=== PATIENT | male | born 1955 | race Caucasian/White ===

== ENCOUNTER 2022-04-03 08:15 | Outpatient (CLI) | payer BC, SELFPAY ==
--- NOTE | 2022-04-03 08:15 | CRLHL7_ITS ---
For Patients: As a result of the Century Cures Act, medical imaging exams and procedure reports are released immediately into your electronic medical record. You may view this report before your referring provider. If you have questions, please contact your health care provider. Technique: Double-contrast esophagram performed after the uneventful administration of effervescent crystals and thick barium followed by thin barium. Fluoroscopy time 1 minutes 30 seconds. Indication: Dysphagia Comparison: 07/11/2021 Findings: Postoperative changes of hernia repair noted at the GE junction. The mid esophageal mucosa appears normal without evidence of [place]`s esophagus. Tertiary contractions throughout the distal esophagus are more prominent compared to the prior study. There is slight narrowing at the GE junction with inability to clear 13 millimeter barium tablet despite changes in position and multiple swallows with water and thin barium. The swallowing mechanism is normal. Esophageal motility appears normal. There is no significant reflux. Impression: Postop changes of hernia repair. Mild narrowing of the GE junction with inability to clear 13 millimeter tablet. Increased tertiary contractions of the distal esophagus compared to the prior study. Dictated by Abdias Torres MD @ 04/03/2022 9:56:40 AM (Electronically Signed)
== END 2022-04-03 08:16 | disposition home or self-care (01) ==
PROVIDERS: PCP Surgery; Visit Provider Surgery
DX: R13.10 Dysphagia, unspecified (principal)
CPT/HCPCS: 74221

== ENCOUNTER 2022-06-04 09:44 | Outpatient (CLI) | payer BC, SELFPAY ==
--- NOTE | 2022-06-04 12:00 | CRLHL7_ITS ---
For Patients: As a result of the Century Cures Act, medical imaging exams and procedure reports are released immediately into your electronic medical record. You may view this report before your referring provider. If you have questions, please contact your health care provider. INDICATION: 66 year-old male. Nausea and vomiting. Hiatal hernia. Surgical repair September 2021. Chronic gastroesophageal reflux disease. TECHNIQUE: 1.1 mCi Tc-99m labeled Sulfur Colloid mixed in with a predetermined solid meal (oatmeal), and 4 ounces of water was ingested as well. Imaging performed up to 85 minutes. FINDINGS: Positive gastric emptying study. Specifically there is only 19% emptying at 85 minutes. (Less than 50% is considered abnormal). IMPRESSION: Scintigraphic evidence for delayed gastric emptying. Dictated by Rey Santacruz MD @ 06/04/2022 12:15:58 PM (Electronically Signed)
== END 2022-06-04 09:45 | disposition home or self-care (01) ==
PROVIDERS: PCP Surgery; Visit Provider Student in an Organized Health Care Education/Training Program
DX: R11.2 Nausea with vomiting, unspecified (principal)
CPT/HCPCS: 78264; A9541

== ENCOUNTER 2023-04-21 08:38 | Emergency (ER) | payer MEDICARE, SELFPAY ==
[2023-04-21 08:47] VITALS: BP 127/75; PULSE 101; RESP 16; TEMP 36.3; O2SAT 96; BMI 26.3
--- NOTE | 2023-04-21 08:56 | CRLHL7_ITS ---
For Patients: As a result of the Century Cures Act, medical imaging exams and procedure reports are released immediately into your electronic medical record. You may view this report before your referring provider. If you have questions, please contact your health care provider. INDICATION: Leg pain and swelling TECHNIQUE: Ultrasound venous duplex lower left extremity. Compression venous exam was performed using leon-scale, color Doppler, and spectral Doppler analysis. COMPARISON: None. FINDINGS: There is demonstration of minimal chronic thrombosis within the popliteal vein with eccentric hyperechoic material. There is acute deep venous thrombosis within the peroneal vein. Otherwise, the common femoral superficial femoral and posterior tibial veins are compressible throughout their lengths. 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 Findings were discussed with Loco Cartagena at 10:57 a.m. April 21, 2023 Dictated by Timbo Malone MD @ 04/21/2023 10:59:28 AM (Electronically Signed)
--- NOTE | 2023-04-21 08:57 | ED.GENADULT ---
HPI - General Adult General Chief complaint: Lower Extremity Swelling Stated complaint: Possible blood clots Time Seen by Provider: 04/21/23 08:53 History of Present Illness HPI narrative: Patient is a very pleasant 67-year-old male works for [employer], he reports some tightness and he thinks a little bit a swelling in his left lower extremity. Symptoms are similar to when he had a DVT x2 in the past. He is currently on Xarelto 10 mg daily maintenance, and he has not missed any tablets. He has not had any trauma or injury. No fever chills. No chest pain or breathing problems or neck her head symptoms. Patient presents concerned about another DVT. He reports his measured his calves and it was a cm or 2 bigger on the left. Related Data Home Medications Medication Instructions Recorded Confirmed rivaroxaban 10 mg tablet (Xarelto) 10 mg PO DAILY 04/21/23 04/21/23 Previous Rx's Medication Instructions Recorded apixaban 5 mg (74 tabs) tablets in See Rx Instructions PO .COMPLEX 04/21/23 a dose pack ([facility] DVT-PE Treat #74 ea 30D Start) Allergies Allergy/AdvReac Type Severity Reaction Status Date / Time Sulfa (Sulfonamide Allergy Verified 04/03/22 09:26 Antibiotics) Review of Systems Status of ROS: Reports: 6 or more systems reviewed and unremarkable except as noted in History and below [facility] Social History Smoking Status: Never smoker How often do you have a drink containing alcohol: monthly or less How often do you have six or more drinks on one occasion: Never AUDIT-C Alcohol total score: 1 Non-prescribed substance use: denies use Exam Narrative: Exam Narrative: Objective: Vital signs unremarkable O2 sat 96% on room air In general pleasant man alert orient x3 Pulse regular Left lower extremity shows negative Homans sign Good peripheral perfusion No palpable venous cords in the calf. No warmth erythema. Const: Vital Signs, click to edit/add: Vital Signs - 24 hr 04/21/23 08:47 Temperature 97.3 F L Pulse Rate [Pulse Oximeter] 101 H Respiratory Rate 16 Blood Pressure [Ri ght Upper Arm] 127/75 Pulse Oximetry 96 Oxygen Delivery Me thod Room Air Course Vital Signs Vital signs: Initial Vital Signs Temperature 97.3 F L 04/21/23 08:47 Temperature Source Temporal Artery Scan 04/21/23 08:47 Pulse Rate 101 H 04/21/23 08:47 Respiratory Rate 16 04/21/23 08:47 Blood Pressure 127/75 04/21/23 08:47 Blood Pressure Mean 92 04/21/23 08:47 Blood Pressure Position Sitting 04/21/23 08:47 Pulse Oximetry 96 04/21/23 08:47 Oxygen Delivery Method Room Air 04/21/23 08:47 Vital Signs Temperature 97.3 F L 04/21/23 08:47 Pulse Rate 101 H 04/21/23 08:47 Respiratory Rate 16 04/21/23 08:47 Blood Pressure 127/75 04/21/23 08:47 Pulse Oximetry 96 04/21/23 08:47 Oxygen Delivery Method Room Air 04/21/23 08:47 Temperature 97.3 F L 04/21/23 08:47 Pulse Rate 101 H 04/21/23 08:47 Respiratory Rate 16 04/21/23 08:47 Blood Pressure 127/75 04/21/23 08:47 Pulse Oximetry 96 04/21/23 08:47 Oxygen Delivery Method Room Air 04/21/23 08:47 Medical Decision Making MDM Narrative Medical decision making narrative: 67-year-old male with 2 episodes of DVT in the past, unclear etiology why these occurred. He has been on Xarelto currently. Would rule out DVT in the left lower extremity. If this is positive may need different anticoagulant, if it is negative then stretching and anti-inflammatory might be reasonable. Please see addendum. Addendum: Patient has a new clot in his calf on the left, he has some chronic clot as well. He has been on 10 mg of Xarelto. After consultation I think it be reasonable to increase him to a treatment dose of Eliquis 10 mg b.i.d. x7 days then 5 mg p.o. b.i.d.. Would have him follow-up with his primary care doctor and consider hematology consultation in the next short while. Recheck with primary care in the next few days for reassessment. Discharge Plan Discharge Clinical Impression: Left leg pain, History of deep venous thrombosis (DVT) of distal vein of left lower extremity Patient Disposition: Home, Self-Care Condition: Stable Instructions: Deep Vein Thrombosis (DC) Additional Instructions: Stop Xarelto, start Eliquis 10 mg twice a day for 7 days then 5 mg twice a day. Recheck with primary care doctor in the next 2-3 days, consider a hematology referral. Return if problems concerns difficulty. Start the Eliquis today Activity Level: Light activity Discharge Diet: Regular Prescriptions: New Eliquis DVT-PE Treat 30D Start 5 mg (74 tabs) tablets,dose pack See Rx Instructions .ROUTE .COMPLEX Qty: 74 0RF Rx Instructions: orally per package directions No Action Xarelto 10 mg tablet 10 mg PO DAILY Follow Up/Referrals: Benjamín Damico MD [Referring] - Stand Alone Forms: [employer] Info Instructions
== END 2023-04-21 10:01 | disposition home or self-care (01) ==
PROVIDERS: Emergency Provider Family Medicine; PCP Family Medicine
DX: I82.462 Acute embolism and thrombosis of left calf muscular vein (principal)
CPT/HCPCS: 93971; 99283; 99284